=== PATIENT | male | born 1955 | race Caucasian/White ===

== ENCOUNTER 2023-11-19 09:25 | Emergency (ER) | payer OTHER, SELFPAY ==
[2023-11-19 09:26] VITALS: BP 140/84
--- NOTE | 2023-11-19 09:31 | ED.GENMED ---
History of Present Illness
<Constanza Rice PA-C - Last Filed: 11/19/23 19:17>
General
Chief Complaint: Musculo-Skeletal Complaint
Source: patient
Exam Limitations: none
Time Seen by Provider: 11/19/23 09:30
Nursing documentation reviewed up to this point in time: agreed with
Travel History
Have you had any contact with someone who has COVID-19?: No
Do you have any symptoms of coronavirus? Fever > 100 degrees, chills, cough, shortness of breath, sore throat, loss of taste or smell, muscle aches, or headache?: No
History of Present Illness
History of Present Illness:
This is a 68-year-old male with no past medical history is presenting to emergency department today with atraumatic, right-sided posterior neck pain x 2 days. Patient states that the pain is a tightness and is exacerbated by any movement. He
states that he has had pain like this before but it usually resolves on its own and this time is more painful and persistent. He states that he was not doing anything in particular when the pain started and occurred randomly, and is hard for him to
find a comfortable position when he sleeps at night. He tried aspirin for the pain which did not help. He denies shortness of breath, dysphagia, odynophagia, fever/chills, recent infection, anterior cervical pain, history of cancer.
Past History
<Constanza Rice PA-C - Last Filed: 11/19/23 19:17>
Past History
ED Past Medical History: None
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
Social History
Personal: Single
Living: alone
Employment: Not employed
Review of Systems
<Constanza Rice PA-C - Last Filed: 11/19/23 19:17>
Review of Systems
All Other Systems: ROS reviewed and negative except as documented in HPI and ROS
Phy Exam
<Constanza Rice PA-C - Last Filed: 11/19/23 19:17>
Physical Exam
Physical Exam:
General: Patient is well appearing
Skin: Warm and dry, no rashes or lesions
HEENT: No anterior/posterior cervical lymphadenopathy. No carotid tenderness.
Cardiac: regular rate
Pulm: Normal respiratory effort
Musculoskeletal: Patient has no bony cervical spine tenderness. Patient has moderate tenderness to palpation of the posterior right cervical paraspinal muscles as well as into the trapezius. Patient unable to turn head due to serve pain.
Course
<Constanza Rice PA-C - Last Filed: 11/19/23 19:17>
Orders/Labs/Results
Orders:
Orders
11/19/23 09:45
Ibuprofen [Motrin] 600 mg PO NOW STA
CR Cervical Spine 2 or 3 Vw Urgent
Comment:
Reason For Exam: neck pain, unable to turn neck
11/19/23 10:08
Ketorolac [Toradol] 15 mg IM NOW STA
Vital Signs
Initial and Last Documented VS:
Initial Vital Signs
Temp Pulse Resp BP Pulse Ox
98.4 F 97 16 140/84 97
11/19/23 09:26 11/19/23 09:26 11/19/23 09:26 11/19/23 09:26 11/19/23 09:26
Last Documented Vital Signs
Temp Pulse Resp BP Pulse Ox
98.4 F 97 16 140/84 97
11/19/23 09:26 11/19/23 09:26 11/19/23 09:26 11/19/23 09:26 11/19/23 09:26
<Quinn Dove DO - Last Filed: 11/19/23 10:15>
Orders/Labs/Results
Orders:
Orders
11/19/23 09:45
Ibuprofen [Motrin] 600 mg PO NOW STA
CR Cervical Spine 2 or 3 Vw Urgent
Comment:
Reason For Exam: neck pain, unable to turn neck
11/19/23 10:08
Ketorolac [Toradol] 15 mg IM NOW STA
Vital Signs
Initial and Last Documented VS:
Initial Vital Signs
Temp Pulse Resp BP Pulse Ox
98.4 F 97 16 140/84 97
11/19/23 09:26 11/19/23 09:26 11/19/23 09:26 11/19/23 09:26 11/19/23 09:26
Last Documented Vital Signs
Temp Pulse Resp BP Pulse Ox
98.4 F 97 16 140/84 97
11/19/23 09:26 11/19/23 09:26 11/19/23 09:26 11/19/23 09:26 11/19/23 09:26
<Constanza Rice PA-C - Last Filed: 11/19/23 19:17>
MDM/Problems Addressed
Differential Diagnosis Includes:
differentials include cervical muscle strain, osteoarthritis, rheumatoid arthritis, myofascial pain syndrome, torticollis
MDM/Problems Addressed:
neck pain
Chronic conditions affecting care:
n/a
Acute Exacerbation and/or Progression of Chronic Illness:
n/a
<Constanza Rice PA-C - Last Filed: 11/19/23 19:17>
*Pulse Oximetry
Patient hypoxic: no
*Critical Care Note
Total Time (30-74mins, 75-104mins- exclusive of procedures): Not Applicable
Data Reviewed
Review of Other/Old Records Reveals: Records (no recent ER visits or hospitalizations )
Prescriptions/Medications Considered But Not Given:
n/a
Further Testing Considered But Not Given:
n/a
<Constanza Rice PA-C - Last Filed: 11/19/23 19:17>
Patient Management
Escalation/DeEscalation of care consider admission/obs:
Patient is a 68 y/o male with no PMH who presents today with right posterior neck pain. His physical exam demonstrates tenderness to palpation of the right side of the upper trapezius. Patient has no carotid artery tenderness, no anterior neck pain.
I suspect cervical muscle strain, will start NSAIDs and flexaril, advised to return should he experience anterior neck pain, chest pain, shortness of breath, fevers or chills, trouble swallowing, jaw pain, or other concerning signs or symptoms.
ED Attending Note
<Constanza Rice PA-C - Last Filed: 11/19/23 19:17>
-
Portions of this chart may have been created with voice recognition software.� Occasional wrong word or��sound alike� substitutions may have occurred due to the inherent limitations of voice recognition software.
<Quinn Dove DO - Last Filed: 11/19/23 10:15>
ED Attending Note
Patient seen and examined by attending physician: Yes
I performed the substantive portion of visit, reviewed & personally made and approve the management plan that is documented in note by myself or BHAVNA.: Yes
ED Attending Note:
I have seen and evaluated the patient with a [id number] encounter. I have spoken to the advance practicer provider and involved in the medical history, the physical exam, medical decision making.
Evaluation and management service: agree unless noted differently below.
Results interpretation: agree unless noted differently below.
Focused HPI: 68-year-old male presenting with right neck pain for the past several days. Denies numbness or tingling or trauma
Physical exam: Spastic right trapezius and sternocleidomastoid. No tenderness to anterior neck palpation. No tenderness to carotid palpation
Medical Decision Making: Cervical x-ray negative for acute pathology. Will start NSAIDs and muscle relaxants and discussed return precautions
Discharge Plan
Departure
Patient Disposition: Home (Routine Discharge)
Date of Disposition: 11/19/23
Time of Disposition: 12:00
Patient with high blood pressure during this ER visit?: Yes
Condition: Good
Discharge Problem:
Cervical muscle strain
Instructions: Cervical Muscle Strain (DC), Generalized Neck Pain, BLOOD PRESSURE
Prescriptions:
New
cyclobenzaprine 5 mg tablet
5 mg PO TID PRN (Reason: muscle spasm) 7 Days Qty: 21 0RF
Referrals:
Megan Junior DO [Family Provider] -
Activity Restrictions/Additional Instructions:
We have sent a muscle relaxant called cyclobenzaprine to your pharmacy. You can take one tablet every 8 hours as needed for muscle spasm.
I also recommend taking ibuprofen (Advil) which you can mushroom picker over the counter. You can take two regular strength tablets every 4-6 hours as needed for pain. Please do not exceed 1200 mg/day.
Please follow up with your primary care provider.
Please return to the emergency department should you develop, chest pain, shortness of breath, anterior neck pain, or other concerning signs or symptoms.
Interventions
Interventions:
*Risk Screen - Suicide Last Done: 11/19/23 10:12
*General Assessment Last Done: 11/19/23 09:26
*Neglect/Abuse Screening Last Done: 11/19/23 10:12
ED- Fall Risk Assessment Last Done: 11/19/23 12:16
*ED COVID-19 Vaccine History Last Done: 11/19/23 09:26
*Nursing Disposition Last Done: 11/19/23 12:16
ED-Musculoskeletal Assessment Last Done: 11/19/23 10:12
Discharge Date and Time
Discharge Date/Time: 11/19/23 12:16
[2023-11-19] MEDS: MOTRIN 600 MG PO (10:07)
[2023-11-19] MEDS: TORADOL 15 MG IM (10:09)
== END 2023-11-19 12:16 | disposition home or self-care (01) ==
LOC: EMR 09:25
PROVIDERS: EMERGENCY PHYSICIAN Student in an Organized Health Care Education/Training Program; FAMILY PHYSICIAN Family Medicine
DX: S16.1XXA Strain of muscle, fascia and tendon at neck level, initial encounter (principal); X58.XXXA Exposure to other specified factors, initial encounter
CPT/HCPCS: 99283; 72040

== ENCOUNTER 2023-11-24 12:58 | Emergency (ER) | payer SELFPAY ==
[2023-11-24 13:02] VITALS: BP 120/73
[2023-11-24 14:57] VITALS: BP 126/86
[2023-11-24] MEDS: DILAUDID 0.5 MG IV (15:07)
[2023-11-24 15:10] LABS: % Basophils 0.3 % (0-2); % Eosinophils 1.4 % (0-6); % Immature Granulocytes 0.6 % (0-0.5); % Lymphocytes 22.6 % (20.5-51.1); % Monocytes 10.4 % (1.7-9.3); % Neutrophils 64.7 % (42.2-75.2); Absolute Eosinophils 0.2 10^3/uL (0-0.7); Absolute Immature Granulocytes 0.1 10^3/uL (0-0.05); Absolute Lymphocytes 2.4 10^3/uL (1.2-3.4); Absolute Monocytes 1.1 10^3/uL (0.1-0.6); Absolute Neutrophils 6.8 10^3/uL (1.4-6.5); Hematocrit 40.2 % (39.0-52.0); Hemoglobin 14.2 g/dL (13.0-18.0); Mean Corp Hgb Conc. 35.3 g/dL (33.0-37.0); Mean Corpuscular Hgb 30.5 pg (27.0-31.0); Mean Corpuscular Volume 86.5 fL (80.0-94.0); Mean Platelet Volume 8.6 fL (7.4-10.4); Nucleated Red Blood Cells % 0 % (-); Platelet Count 269 10^3/uL (130-400); Red Blood Cell Count 4.65 10^6/uL (4.70-6.10); Red Cell Dist. Width 12.2 % (11.5-14.5); White Blood Cell Count 10.6 10^3/uL (4.8-10.8)
--- NOTE | 2023-11-24 15:11 | ED.GENMED ---
History of Present Illness
<Constanza Rice PA-C - Last Filed: 11/25/23 17:45>
General
Chief Complaint: Musculo-Skeletal Complaint
Source: patient
Exam Limitations: none
Time Seen by Provider: 11/24/23 14:24
Nursing documentation reviewed up to this point in time: agreed with
Travel History
Have you had any contact with someone who has COVID-19?: No
Do you have any symptoms of coronavirus? Fever > 100 degrees, chills, cough, shortness of breath, sore throat, loss of taste or smell, muscle aches, or headache?: No
History of Present Illness
History of Present Illness:
This is a 68 y/o male with PMH of degenerative disc disease of the cervical spine presenting to the emergency department today with complaints of left neck pain that radiates into the left lower shoulder for the past few days. He states that this is
worse with movement. He states that ibuprofen has not helped his pain. He states that the muscle relaxant that he was recently giving also did not help with his pain. He was seen here 5 days ago for a similar problem except at that point, the pain
was on the right side. Also now new for him is anterior neck pain. He denies dizziness, lightheadedness, changes to his vision, chest pain, shortness of breath, nausea or vomiting.
Past History
<Constanza Rice PA-C - Last Filed: 11/25/23 17:45>
Past History
ED Past Medical History: None
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
Social History
Personal: Single
Living: alone
Employment: Not employed
Review of Systems
<Constanza Rice PA-C - Last Filed: 11/25/23 17:45>
Review of Systems
All Other Systems: ROS reviewed and negative except as documented in HPI and ROS
Phy Exam
<Constanza Rice PA-C - Last Filed: 11/25/23 17:45>
Physical Exam
Physical Exam:
General: patient is well appearing and in no acute distress
Skin: warm and dry, no rashes or lesions
Cardiac: regular rate
Pulm: normal respiratory effort
Peripheral Vascular: 2+ carotid pulses. No carotid bruits. Tenderness to palpation over the left carotid artery.
Musculoskeletal: There is no tenderness to palpation of the cervical spine. Patient seen spontaneously moving cervical spine. There is moderate tenderness to palpation of the b/l paraspinal muscles of the cervical spine. Also moderate tenderness to
palpation of the left upper trapezius, no tenderness to palpation of the left shoulder joint. Patient has full range of motion of left shoulder joint. Amputation site intact.
Neuro: AAO x3. No focal neurologic deficits.
Course
<Constanza Rice PA-C - Last Filed: 11/25/23 17:45>
Orders/Labs/Results
Orders:
Orders
11/24/23 13:04
Shoulder, Left, Trauma CR [CR Shoulder, Trauma - Left] Urgent
Comment:
Reason For Exam: pain, unknown if trauma to L shoulder
11/24/23 14:52
CT Head & Neck Angio W/wo IV Urgent
Comment:
Reason For Exam: carotid artery tenderness, neck pain
HYDROmorphone [Dilaudid] 0.5 mg IV NOW STA
11/24/23 14:59
Complete Blood Count/With Diff Urgent
Comprehensive Metabolic Panel Urgent
11/24/23 17:57
Ketorolac [Toradol] 15 mg IM NOW STA
Abnormal Lab Results
11/24/23
14:59
RBC 4.65 L 10^6/uL
(4.70-6.10)
Abs Immat Gran (auto) 0.1 H 10^3/uL
(0-0.05)
Absolute Neuts (auto) 6.8 H 10^3/uL
(1.4-6.5)
Absolute Monos (auto) 1.1 H 10^3/uL
(0.1-0.6)
Immature Gran % 0.6 H %
(0-0.5)
Monocytes % 10.4 H %
(1.7-9.3)
Sodium 134 L mmol/L
(135-145)
Creatinine 0.6 L mg/dL
(0.7-1.3)
Glucose 100 H mg/dl
(70-99)
ALT 78 H U/L
(0-50)
11/24/23 14:59
11/24/23 14:59
Vital Signs
Initial and Last Documented VS:
Initial Vital Signs
Temp Pulse Resp BP Pulse Ox
98.2 F 94 20 120/73 97
11/24/23 13:02 11/24/23 13:02 11/24/23 13:02 11/24/23 13:02 11/24/23 13:02
Last Documented Vital Signs
Temp Pulse Resp BP Pulse Ox
98.2 F 77 16 130/81 99
11/24/23 13:02 11/24/23 16:53 11/24/23 16:53 11/24/23 16:53 11/24/23 16:53
<Quinn Dove, DO - Last Filed: 11/24/23 15:30>
Orders/Labs/Results
Orders:
Orders
11/24/23 13:04
Shoulder, Left, Trauma CR [CR Shoulder, Trauma - Left] Urgent
Comment:
Reason For Exam: pain, unknown if trauma to L shoulder
11/24/23 14:52
CT Head & Neck Angio W/wo IV Urgent
Comment:
Reason For Exam: carotid artery tenderness, neck pain
HYDROmorphone [Dilaudid] 0.5 mg IV NOW STA
11/24/23 14:59
Complete Blood Count/With Diff Urgent
Comprehensive Metabolic Panel Urgent
11/24/23 17:57
Ketorolac [Toradol] 15 mg IM NOW STA
Abnormal Lab Results
11/24/23
14:59
RBC 4.65 L 10^6/uL
(4.70-6.10)
Abs Immat Gran (auto) 0.1 H 10^3/uL
(0-0.05)
Absolute Neuts (auto) 6.8 H 10^3/uL
(1.4-6.5)
Absolute Monos (auto) 1.1 H 10^3/uL
(0.1-0.6)
Immature Gran % 0.6 H %
(0-0.5)
Monocytes % 10.4 H %
(1.7-9.3)
Sodium 134 L mmol/L
(135-145)
Creatinine 0.6 L mg/dL
(0.7-1.3)
Glucose 100 H mg/dl
(70-99)
ALT 78 H U/L
(0-50)
11/24/23 14:59
11/24/23 14:59
Vital Signs
Initial and Last Documented VS:
Initial Vital Signs
Temp Pulse Resp BP Pulse Ox
98.2 F 94 20 120/73 97
11/24/23 13:02 11/24/23 13:02 11/24/23 13:02 11/24/23 13:02 11/24/23 13:02
Last Documented Vital Signs
Temp Pulse Resp BP Pulse Ox
98.2 F 77 16 130/81 99
11/24/23 13:02 11/24/23 16:53 11/24/23 16:53 11/24/23 16:53 11/24/23 16:53
<Constanza Rice PA-C - Last Filed: 11/25/23 17:45>
MDM/Problems Addressed
Differential Diagnosis Includes:
ddx include musculoskeletal sprain/strain, osteoarthritis, degenerative disc disease, carotid artery dissection, carotid artery stenosis
MDM/Problems Addressed:
neck pain
Chronic conditions affecting care:
n/a
Acute Exacerbation and/or Progression of Chronic Illness:
n/a
<Constanza Rice PA-C - Last Filed: 11/25/23 17:45>
*Pulse Oximetry
Patient hypoxic: no
*Critical Care Note
Total Time (30-74mins, 75-104mins- exclusive of procedures): Not Applicable
Data Reviewed
Review of Other/Old Records Reveals: Records (reviewed my note from 11/19/2023, reviewed ER physician documentation from 08/28/11)
Prescriptions/Medications Considered But Not Given:
n/a
Further Testing Considered But Not Given:
n/a
<Constanza Rice PA-C - Last Filed: 11/25/23 17:45>
Patient Management
Escalation/DeEscalation of care consider admission/obs:
This is a 68 y/o male with no PMH who is presenting today with left neck pain. Patient was seen here a few days ago for very similar pain which at that point the pain was on the right and his CR of the cervical spine revealed degenerative disc
disease. He was sent home with a muscle relaxant and advised to use ibuprofen and followup with his PCP. He states that the muscle relaxant and ibuprofen did not help his symptoms. His shoulder x-ray showed some arthritic changes but no acute
disease. Today, he also complains of anterior neck pain which appears to be new for him. On exam he had left carotid artery tenderness. Considering this, CTA head/neck was done which was negative. Considering his pain was refractory to ibuprofen and
muscle relxants, we sent him home with a few Vicodin tablets. I provided patient with a referral to ortho and I stressed to patient the importance of PCP/ortho follow up as his symptoms are likely secondary to chronic arthritic changes.
ED Attending Note
<Constanza Rice PA-C - Last Filed: 11/25/23 17:45>
-
Portions of this chart may have been created with voice recognition software.� Occasional wrong word or��sound alike� substitutions may have occurred due to the inherent limitations of voice recognition software.
<Quinn Dove DO - Last Filed: 11/24/23 15:30>
ED Attending Note
Patient seen and examined by attending physician: Yes
I performed the substantive portion of visit, reviewed & personally made and approve the management plan that is documented in note by myself or BHAVNA.: Yes
ED Attending Note:
I have seen and evaluated the patient with a [id number] encounter. I have spoken to the advance practicer provider and involved in the medical history, the physical exam, medical decision making.
Evaluation and management service: agree unless noted differently below.
Results interpretation: agree unless noted differently below.
Focused HPI: 68-year-old male presents back to the emergency department with persistent neck pain. Initially, he complained of posterior neck pain. Patient now complaining of anterior neck pain
Physical exam: Patient appears uncomfortable. He has evidence of trapezial spasm but there is mild tenderness to palpation of carotids
Medical Decision Making: Given the recurrent pain and now with anterior distribution, will obtain CT angiogram
Discharge Plan
Departure
Patient Disposition: Home (Routine Discharge)
Date of Disposition: 11/24/23
Time of Disposition: 18:11
Patient with high blood pressure during this ER visit?: Yes
Condition: Good
Discharge Problem:
Cervical strain
Prescriptions:
New
hydrocodone-acetaminophen 5-300 mg tablet
1 tab PO Q8H PRN (Reason: Pain) Qty: 10 0RF
No Action
cyclobenzaprine 5 mg tablet
5 mg PO TID PRN (Reason: muscle spasm) 7 Days Qty: 21 0RF
Referrals:
Titus Paula MD [Active] - Call in 1-3 days for appt
UNKNOWN - PT DOES,NOT KNOW [Family Provider] -
Activity Restrictions/Additional Instructions:
We have sent a medication called Vicodin to your pharmacy. You can take one tablet every 8 hours as needed for pain. This medication contains acetaminophen. Please do not take acetaminophen while taking this medication.
We have provided your with a referral to an orthopedist.
Please follow up with your primary care provider.
Interventions
Interventions:
*Risk Screen - Suicide Last Done: 11/24/23 14:16
*General Assessment Last Done: 11/24/23 13:02
*Neglect/Abuse Screening Last Done: 11/24/23 14:16
ED- Fall Risk Assessment Last Done: 11/24/23 18:15
*ED COVID-19 Vaccine History Last Done: 11/24/23 14:16
*Nursing Disposition Last Done: 11/24/23 18:15
ED-Musculoskeletal Assessment Last Done: 11/24/23 14:17
Discharge Date and Time
Discharge Date/Time: 11/24/23 18:16
[2023-11-24 15:32] LABS: ALT (SGPT) 78 U/L (0-50); AST (SGOT) 46 U/L (17-59); Albumin 4.4 g/dl (3.5-5.0); Alkaline Phosphatase 69 U/L (38-126); Blood Urea Nitrogen 16 mg/dl (9-20); Calcium 9.3 mg/dl (8.4-10.2); Carbon Dioxide 27 mmol/L (22-30); Chloride 101 mmol/L (98-107); Glucose 100 mg/dl (70-99); Potassium 4.6 mmol/L (3.5-5.1); Sodium 134 mmol/L (135-145); Total Bilirubin 0.8 mg/dl (0.2-1.3); Total Protein 7.8 g/dl (6.3-8.2); eGFR > 60.00
[2023-11-24 16:53] VITALS: BP 130/81
[2023-11-24] MEDS: TORADOL 15 MG IM (18:02)
== END 2023-11-24 18:16 | disposition home or self-care (01) ==
LOC: EMR 12:58
PROVIDERS: Physician Assistant; EMERGENCY PHYSICIAN Student in an Organized Health Care Education/Training Program
DX: S16.1XXA Strain of muscle, fascia and tendon at neck level, initial encounter (principal); X58.XXXA Exposure to other specified factors, initial encounter; M54.2 Cervicalgia
CPT/HCPCS: 99284; 70496; 70498; 73030; 80053; 85025; Q9967

== ENCOUNTER → 2024-05-13 11:17 | Outpatient (REF) | payer OTHER, SELFPAY ==
[2024-05-13 13:51] LABS: % Basophils 0.2 % (0-2); % Eosinophils 1.7 % (0-6); % Immature Granulocytes 0.3 % (0-0.5); % Lymphocytes 21.7 % (20.5-51.1); % Neutrophils 67.1 % (42.2-75.2); Absolute Eosinophils 0.2 10^3/uL (0-0.7); Absolute Lymphocytes 2.5 10^3/uL (1.2-3.4); Absolute Monocytes 1.1 10^3/uL (0.1-0.6); Absolute Neutrophils 7.8 10^3/uL (1.4-6.5); Hematocrit 44.6 % (39.0-52.0); Hemoglobin 15.1 g/dL (13.0-18.0); Mean Corp Hgb Conc. 33.9 g/dL (33.0-37.0); Mean Corpuscular Hgb 30.6 pg (27.0-31.0); Mean Corpuscular Volume 90.3 fL (80.0-94.0); Nucleated Red Blood Cells % 0 % (-); Platelet Count 253 10^3/uL (130-400); Red Blood Cell Count 4.94 10^6/uL (4.70-6.10); Red Cell Dist. Width 12.5 % (11.5-14.5); White Blood Cell Count 11.6 10^3/uL (4.8-10.8)
[2024-05-13 14:16] LABS: ALT (SGPT) 37 U/L (0-50); AST (SGOT) 38 U/L (17-59); Albumin 4.9 g/dl (3.5-5.0); Alkaline Phosphatase 82 U/L (38-126); Blood Urea Nitrogen 16 mg/dl (9-20); Calcium 9.5 mg/dl (8.4-10.2); Carbon Dioxide 28 mmol/L (22-30); Chloride 100 mmol/L (98-107); Glucose 79 mg/dl (70-99); HDL Cholesterol 51 mg/dl; LDL Cholesterol, Calculated 114 mg/dl; Potassium 4.7 mmol/L (3.5-5.1); Sodium 140 mmol/L (135-145); Total Bilirubin 1.5 mg/dl (0.2-1.3); Total Cholesterol 175 mg/dl (50-199); Total Protein 7.9 g/dl (6.3-8.2); Triglyceride 50 mg/dl (10-149); Very Low Density Lipoprotein 10 mg/dl (0-30); eGFR > 60.00
== END ==
LOC: CLINIC 11:17
PROVIDERS: ATTENDING PHYSICIAN Family Medicine
DX: Z00.00 Encounter for general adult medical examination without abnormal findings (principal)
CPT/HCPCS: 36415; 80053; 80061; 85025

== ENCOUNTER → 2024-05-26 14:04 | Outpatient (REF) | payer OTHER, SELFPAY ==
[2024-05-29 18:17] LABS: FIT-Fecal Occult Blood Interp Negative
== END ==
LOC: REG 14:04
PROVIDERS: ATTENDING PHYSICIAN Family Medicine; FAMILY PHYSICIAN Family Medicine
DX: Z00.00 Encounter for general adult medical examination without abnormal findings (principal)
CPT/HCPCS: 83520

== ENCOUNTER → 2024-07-22 10:40 | Outpatient (REF) | payer OTHER, SELFPAY ==
[2024-07-22 11:32] LABS: % Basophils 0.4 % (0-2); % Immature Granulocytes 0.6 % (0-0.5); % Lymphocytes 29.1 % (20.5-51.1); % Monocytes 11.4 % (1.7-9.3); % Neutrophils 54.5 % (42.2-75.2); Absolute Eosinophils 0.3 10^3/uL (0-0.7); Absolute Immature Granulocytes 0.1 10^3/uL (0-0.05); Absolute Lymphocytes 2.3 10^3/uL (1.2-3.4); Absolute Monocytes 0.9 10^3/uL (0.1-0.6); Absolute Neutrophils 4.3 10^3/uL (1.4-6.5); Hematocrit 41.6 % (39.0-52.0); Hemoglobin 14.4 g/dL (13.0-18.0); Mean Corp Hgb Conc. 34.6 g/dL (33.0-37.0); Mean Corpuscular Hgb 29.6 pg (27.0-31.0); Mean Corpuscular Volume 85.4 fL (80.0-94.0); Mean Platelet Volume 9.1 fL (7.4-10.4); Nucleated Red Blood Cells % 0 % (-); Platelet Count 253 10^3/uL (130-400); Red Blood Cell Count 4.87 10^6/uL (4.70-6.10); Red Cell Dist. Width 12.6 % (11.5-14.5)
[2024-07-22 11:47] LABS: ALT (SGPT) 38 U/L (0-50); AST (SGOT) 34 U/L (17-59); Albumin 4.5 g/dl (3.5-5.0); Alkaline Phosphatase 64 U/L (38-126); Blood Urea Nitrogen 20 mg/dl (9-20); Calcium 9.2 mg/dl (8.4-10.2); Carbon Dioxide 26 mmol/L (22-30); Chloride 102 mmol/L (98-107); Glucose 99 mg/dl (70-99); Potassium 4.4 mmol/L (3.5-5.1); Sodium 141 mmol/L (135-145); Total Bilirubin 0.8 mg/dl (0.2-1.3); Total Protein 7.4 g/dl (6.3-8.2); eGFR > 60.00
[2024-07-22 12:17] LABS: PSA, Total - Screen 1.93 ng/ml (0.0-4.0)
[2024-07-22 12:34] LABS: Hepatitis C Antibody Negative (Negative)
== END ==
LOC: REG 10:40
PROVIDERS: ATTENDING PHYSICIAN Family Medicine
DX: D72.828 Other elevated white blood cell count (principal); R17 Unspecified jaundice; Z12.5 Encounter for screening for malignant neoplasm of prostate
CPT/HCPCS: 36415; 80053; 85025; 86803; G0103

== ENCOUNTER → 2025-04-13 09:29 | Outpatient (REF) | payer OTHER, SELFPAY ==
[2025-04-13 10:59] LABS: % Basophils 0.5 % (0-2); % Eosinophils 1.5 % (0-6); % Immature Granulocytes 0.3 % (0-0.5); % Lymphocytes 34.8 % (20.5-51.1); % Monocytes 9.1 % (1.7-9.3); % Neutrophils 53.8 % (42.2-75.2); Absolute Eosinophils 0.1 10^3/uL (0-0.7); Absolute Lymphocytes 2.3 10^3/uL (1.2-3.4); Absolute Monocytes 0.6 10^3/uL (0.1-0.6); Absolute Neutrophils 3.6 10^3/uL (1.4-6.5); Hematocrit 43.2 % (39.0-52.0); Hemoglobin 14.6 g/dL (13.0-18.0); Mean Corp Hgb Conc. 33.8 g/dL (33.0-37.0); Mean Corpuscular Hgb 29.4 pg (27.0-31.0); Mean Corpuscular Volume 86.9 fL (80.0-94.0); Mean Platelet Volume 9.8 fL (7.4-10.4); Nucleated Red Blood Cells % 0 % (-); Platelet Count 229 10^3/uL (130-400); Red Blood Cell Count 4.97 10^6/uL (4.70-6.10); Red Cell Dist. Width 12.5 % (11.5-14.5); White Blood Cell Count 6.6 10^3/uL (4.8-10.8)
[2025-04-13 18:47] LABS: Hepatitis C Antibody Negative (Negative)
== END ==
LOC: REG 09:29
PROVIDERS: ATTENDING PHYSICIAN Family Medicine
DX: D72.828 Other elevated white blood cell count (principal); R17 Unspecified jaundice
CPT/HCPCS: 36415; 85025; 86803

== ENCOUNTER → 2025-08-16 11:21 | Outpatient (REF) | payer OTHER, SELFPAY ==
[2025-08-16 12:18] LABS: Hematocrit 46.1 % (39.0-52.0); Hemoglobin 15.5 g/dL (13.0-18.0); Mean Corp Hgb Conc. 33.6 g/dL (33.0-37.0); Mean Corpuscular Volume 90.0 fL (80.0-94.0); Nucleated Red Blood Cells % 0 % (-); Platelet Count 231 10^3/uL (130-400); Red Cell Dist. Width 12.9 % (11.5-14.5)
[2025-08-16 13:03] LABS: ALT (SGPT) 47 U/L (0-50); AST (SGOT) 33 U/L (17-59); Albumin 4.6 g/dl (3.5-5.0); Alkaline Phosphatase 64 U/L (38-126); Blood Urea Nitrogen 16 mg/dl (9-20); Calcium 9.3 mg/dl (8.4-10.2); Carbon Dioxide 27 mmol/L (22-30); Chloride 103 mmol/L (98-107); Glucose 95 mg/dl (70-99); HDL Cholesterol 49 mg/dl; LDL Cholesterol, Calculated 121 mg/dl; Potassium 4.3 mmol/L (3.5-5.1); Sodium 138 mmol/L (135-145); Total Protein 7.7 g/dl (6.3-8.2); Very Low Density Lipoprotein 14 mg/dl (0-30); eGFR > 60.00
== END ==
LOC: REG 11:21
PROVIDERS: ATTENDING PHYSICIAN Nurse Practitioner Family
DX: Z00.00 Encounter for general adult medical examination without abnormal findings (principal)
CPT/HCPCS: 36415; 80053; 80061; 85025